=== PATIENT | female | born 1970 | race Two or more races ===

== ENCOUNTER 2025-03-01 10:03 | Inpatient (IN) | payer BC ==
[~2025-03-01] VITALS: Ht 165.1 cm; Wt 67.6 kg
--- NOTE | 2025-03-01 10:19 | NUR ---
PACIENTE ALERTA Y ORIENTADA X3 LA MISMA REFIERE TENER INFECION DE ORINA . S/V ESTABLE AL MOMENTO . PACIENTE EN ESPERA DE EVALUACION MEDICA.
[2025-03-01 10:59] LABS: BASO % 0.2 % (0.1-1.2); EOS # 0.00 (0.04-0.54); EOS % 0.0 % (0.7-7.0); LYMPH # 4.91 (1.18-3.74); LYMPH % 13.5 % (19.3-53.1); MEAN PLATELET VOLUME 9.80 fl (9.4-12.4); MONO # 2.78 (0.24-0.82); MONO % 7.6 % (4.7-12.5); NEUT # 28.28 (1.56-6.13); NEUT % 77.6 % (34.0-71.1); RED CELL DISTRIBUTION WIDTH 13.6 % (11.6-14.4)
[2025-03-01 11:23] LABS: ALT/SGPT 19.0 U/L (12-78); AST/SGOT 11.0 U/L (15-37); BILIRUBIN TOTAL 0.6 mg/dL (0.3-1.2); BUN CREA RATIO 14.0 (7.0-25.0); CREATININE SERUM 0.79 mg/dL (0.55-1.02); GFR 76.42; GLOBULINA 3.6 G/DL (2.4-3.5); GLUCOSE FASTING 97.0 mg/dL (65-100); OSMOLALITY SERUM 281.0 MOSM/KG (275-295)
[2025-03-01 12:02] LABS: URINE APPEARANCE Clear; URINE BILIRRUBIN Small (NEGATIVE); URINE BLOOD Negative; URINE COLOR Orange; URINE GLUCOSE Negative (NEGATIVE); URINE KETONE Negative (NEGATIVE); URINE LEUKOCYTE Moderate; URINE NITRATE Positive; URINE PROTEIN 30 (NEGATIVE); URINE UROBILINOGEN 1.0 E.U./dl
[2025-03-01 12:08] LABS: URINE BACTERIA 129.5 uL (0.0-1933); URINE EPITHELIAL CELLS 54.5 uL (0.0-38.8); URINE RBC 24.9 uL (0.0-20.8); URINE WBC 30.2 uL (0.0-23.2)
[2025-03-01 12:45] LABS: URINE CAST 0.00 uL (0.0-1.40)
[2025-03-01 12:47] LABS: URINE CRYSTALS MODERATE /HPF
[2025-03-01] MEDS ORDERED: CEFTRIAXONE SODIUM 2,000 MG VIAL IV ONE (14:30)
[2025-03-01] MEDS ORDERED: CEFTRIAXONE SODIUM 2,000 MG VIAL ONE (14:38)
--- NOTE | 2025-03-01 15:08 | NUR ---
SE REALIZA LAB Y SE ADMINISTRA T XSEGUN ORDEN MEDICA BAJO MEDDIAS ASEPTICAS. SE ORIENTA PTE QUIEN REFIERE ENTENDER Y ACEPTAR
[2025-03-01] MEDS ORDERED: PIPERACILLIN/TAZOBACTAM SODIUM 3.375 GM in DEXTROSE 5 % IN WATER 100 ML IV SCH (20:25)
[2025-03-01] MEDS ORDERED: FAMOTIDINE/PF 20 MG in 0.9 % SODIUM CHLORIDE 8 ML IV PUSH SCH (20:25)
[2025-03-01] MEDS ORDERED: 0.9 % SODIUM CHLORIDE 1,000 ML IV SCH (20:30)
[2025-03-01] MEDS ORDERED: ACETAMINOPHEN 500 MG GEL..CAP PO PRN (20:30)
[2025-03-01 22:20] VITALS: BP 138/79
[2025-03-01 22:33] LABS: INR 1.0
[2025-03-01] MEDS ORDERED: FAMOTIDINE/PF 20 MG/2 ML VIAL ONE (22:37)
[2025-03-01] MEDS ORDERED: PIPERACILLIN/TAZOBACTAM SODIUM 3.375 GM VIAL IV ONE (22:37)
[2025-03-02] MEDS ORDERED: PIPERACILLIN/TAZOBACTAM SODIUM 3.375 GM VIAL IV ONE (00:55)
[2025-03-02 08:26] VITALS: BP 113/70
[2025-03-02] MEDS ORDERED: ENOXAPARIN SODIUM 40 MG/0.4 ML SYRINGE SUBCUTANEO SCH (09:00)
[2025-03-02] MEDS ORDERED: FLUOXETINE HCL 20 MG CAPSULE PO SCH (09:00)
[2025-03-02 18:50] VITALS: BP 102/64; O2SAT 100
[2025-03-03 01:40] VITALS: BP 116/74; O2SAT 95
[2025-03-03 07:33] LABS: BASO % 0.6 % (0.1-1.2); EOS # 0.29 (0.04-0.54); EOS % 1.2 % (0.7-7.0); LYMPH # 7.07 (1.18-3.74); LYMPH % 30.3 % (19.3-53.1); MEAN PLATELET VOLUME 10.30 fl (9.4-12.4); MONO # 1.98 (0.24-0.82); MONO % 8.5 % (4.7-12.5); NEUT # 13.69 (1.56-6.13); NEUT % 58.5 % (34.0-71.1); RED CELL DISTRIBUTION WIDTH 14.1 % (11.6-14.4)
[2025-03-03 08:09] VITALS: BP 122/72
[2025-03-03 08:09] LABS: ALT/SGPT 16.0 U/L (12-78); AST/SGOT 15.0 U/L (15-37); BILIRUBIN TOTAL 0.77 mg/dL (0.3-1.2); BUN CREA RATIO 12.0 (7.0-25.0); CREATININE SERUM 0.81 mg/dL (0.55-1.02); GFR 74.25; GLOBULINA 2.7 G/DL (2.4-3.5); GLUCOSE FASTING 79.0 mg/dL (65-100); OSMOLALITY SERUM 277.0 MOSM/KG (275-295)
== END 2025-03-03 14:23 | disposition left against medical advice (07) | DRG 872 ==
LOC: ER 10:15 → SEC-K 20:53 → MEDJ 20:53
PROVIDERS: General Practice; Preventive Medicine Public Health & General Preventive Medicine; ADMIT Internal Medicine; ATTEND Internal Medicine
PROC: BW21YZZ Computerized Tomography (CT Scan) of Abdomen and Pelvis using Other Contrast (ICD-10-PCS; principal; 2025-03-01)
PROC: BU4CZZZ Ultrasonography of Uterus and Ovaries (ICD-10-PCS; 2025-03-01)
DX: A41.9 Sepsis, unspecified organism (principal); N39.0 Urinary tract infection, site not specified; D69.3 Immune thrombocytopenic purpura